=== PATIENT | male | born 1955 | race Caucasian/White ===

== ENCOUNTER → 2022-03-11 | Day surgery (SDC) | payer MEDICARE, BC ==
[~2022-03-11] MED LIST: Flumazenil 0.1 MG/ML 10 ML MDV ONE; Ketamine 200 MG/20 ML MDV ONE; Midazolam 1 MG/ML 2 ML SDV ONE; Propofol 200 MG/20 ML SDV ONE; fentaNYL 50 MCG/ML SDV ONE
[2022-03-11] MEDS: Lactated Ringers 1,000 ML IV SCH (09:40)
[2022-03-11 11:41] VITALS: BP 129/82; PULSE 81
== END ==
LOC: CC.SDS 09:29
PROVIDERS: ATTEND Family Medicine
DX: Z12.11 Encounter for screening for malignant neoplasm of colon (principal); D12.7 Benign neoplasm of rectosigmoid junction; D12.0 Benign neoplasm of cecum; D12.5 Benign neoplasm of sigmoid colon; K57.30 Diverticulosis of large intestine without perforation or abscess without bleeding; I10 Essential (primary) hypertension; E78.5 Hyperlipidemia, unspecified; E83.42 Hypomagnesemia; N40.0 Benign prostatic hyperplasia without lower urinary tract symptoms; E55.9 Vitamin D deficiency, unspecified; D51.0 Vitamin B12 deficiency anemia due to intrinsic factor deficiency; J30.9 Allergic rhinitis, unspecified; M81.8 Other osteoporosis without current pathological fracture; E27.1 Primary adrenocortical insufficiency; Z86.010 Personal history of colon polyps; Z79.899 Other long term (current) drug therapy; Z98.890 Other specified postprocedural states
CPT/HCPCS: 00811; 45385; 88305; J2250; J2704; J3010; J3490; J7120

== ENCOUNTER 2022-10-19 18:18 | Observation (INO) | payer MEDICARE, BC ==
[2022-10-19] MEDS ORDERED: EPINEPHrine 1 MG/ML SDV IM ONE ×2 (18:20→18:26)
[2022-10-19] MEDS ORDERED: diphenhydrAMINE 50 MG/ML SDV IVPUSH ONE (18:20)
[2022-10-19] MEDS ORDERED: methylPREDNISolone Sodium Succinate 125 MG/2 ML SDV IVPUSH ONE (18:21)
[2022-10-19] MEDS ORDERED: Sodium Chloride 0.9% 1,000 ML IV ONE (18:23)
[2022-10-19 18:54] LABS: ALANINE AMINOTRANSFERASE,ALT 60 U/L (12-78); ALBUMIN 3.2 g/dL (3.4-5.0); ALKALINE PHOSPHATASE 84 U/L (46-116); ASPARTATE AMNIOTRANSFERASE,AST 40 U/L (15-37); BILIRUBIN TOTAL 0.8 mg/dL (0.0-1.0); BLOOD UREA NITROGEN,BUN 11 mg/dL (7-18); CALCIUM 8.7 mg/dL (8.4-10.1); CARBON DIOXIDE,CO2 32 mmol/L (21-32); CHLORIDE,CL 96 mEq/L (98-106); GLUCOSE RANDOM 191 mg/dL (75-99); MAGNESIUM 1.8 mg/dL (1.8-2.4); POTASSIUM,K 3.1 mEq/L (3.5-5.0); PROTEIN TOTAL,TP 7.6 g/dL (6.4-8.2); SODIUM,NA 136 mEq/L (136-145)
[2022-10-19 18:59] LABS: ESTIMATED GFR 83 mL/min (>=60)
[2022-10-19] MEDS ORDERED: Potassium Chloride 10 MEQ Tab.ER PO ONE (19:13)
[2022-10-19] MEDS ORDERED: Sodium Chloride 0.45% with KCl 1,000 ML IV SCH (19:37)
[2022-10-19] MEDS ORDERED: Ondansetron 4 MG/2 ML SDV IV PRN (19:37)
[2022-10-19] MEDS ORDERED: EPINEPHrine 1 MG/ML SDV IM PRN (19:37)
[2022-10-19] MEDS ORDERED: Cyanocobalamin (Vitamin B12) 1,000 MCG/ML SDV IM SCH (19:37)
[2022-10-19] MEDS ORDERED: Ondansetron 4 MG Tab.DIS PO PRN (19:37)
[2022-10-19] MEDS ORDERED: ALPRAZolam 0.25 MG Tab PO PRN (19:37)
[2022-10-19] MEDS ORDERED: Acetaminophen 325 MG Tab PO PRN (19:37)
[2022-10-19] MEDS ORDERED: diphenhydrAMINE 50 MG/ML SDV IVPUSH PRN (19:37)
[2022-10-19] MEDS ORDERED: Famotidine 20 MG/2 ML SDV IVPUSH SCH (20:00)
[2022-10-19] MEDS: methylPREDNISolone Sodium Succinate 40 MG/1 ML SDV IVPUSH SCH (23:31)
[2022-10-20] MEDS: methylPREDNISolone Sodium Succinate 40 MG/1 ML SDV IVPUSH SCH (07:39)
[2022-10-20 07:40] LABS: BASOPHILS ABSOLUTE AUTO 0.01 10^3/uL (0.00-0.50); BASOPHILS PERCENT AUTO 0.1 % (0-1); HEMATOCRIT 43.4 % (42.0-52.0); HEMOGLOBIN 15.3 g/dL (14.0-18.0); IMMATURE GRAN ABSOLUTE AUTO 0.05 10^3/uL (0.00-0.49); IMMATURE GRAN PERCENT AUTO 0.6 % (0.0-4.9); LYMPHOCYTES ABSOLUTE AUTO 0.44 10^3/uL (0.60-5.00); LYMPHOCYTES PERCENT AUTO 5.7 % (24-44); MEAN CORPUSCULAR HEMOGLOBIN 36.1 pg (27.0-32.0); MEAN CORPUSCULAR HGB CONC 35.3 g/dL (32.0-36.0); MEAN CORPUSCULAR VOLUME 102.4 fL (83.0-97.0); MONOCYTES ABSOLUTE AUTO 0.21 10^3/uL (0.00-1.50); MONOCYTES PERCENT AUTO 2.7 % (0-10); NEUTROPHILS ABSOLUTE AUTO 7.06 x10^3/uL (1.80-8.00); NEUTROPHILS PERCENT AUTO 90.9 % (41-71); PLATELET COUNT,PLT 168 10^3/uL (150-400); RED BLOOD CELL COUNT 4.24 x10^6/uL (4.50-6.00); WHITE BLOOD CELL COUNT,WBC 7.8 10^3/uL (4.0-11.0)
[2022-10-20 07:48] LABS: CALCIUM 8.6 mg/dL (8.4-10.1); EST CRCL DRUG DOSING (CG) 77.39 mL/min; MAGNESIUM 1.6 mg/dL (1.8-2.4); POTASSIUM,K 3.7 mEq/L (3.5-5.0)
[2022-10-20] MEDS ORDERED: Non-Formulary Medication 1 Each (Ipratropium Bromide [Ipratropium Bromide] 15 ML Spray) NS SCH (08:00)
[2022-10-20] MEDS ORDERED: Torsemide 20 MG Tab PO SCH (08:00)
[2022-10-20] MEDS ORDERED: Multivitamins with Iron/Calcium/Folic Acid/Minerals Tab PO SCH (08:00)
[2022-10-20] MEDS ORDERED: Cholecalciferol (Vitamin D3) 25 MCG Tab PO SCH (08:00)
[2022-10-20] MEDS ORDERED: Potassium Chloride 10 MEQ Tab.ER PO SCH (08:00)
[2022-10-20] MEDS ORDERED: Metoprolol Succinate 25 MG Tab.ER PO SCH (08:00)
[2022-10-20] MEDS ORDERED: Non-Formulary Medication 1 Each (Fish Oil/Omega-3 Fatty Acids [Fish Oil 1,000 Mg] 1 GM Cap PO SCH (08:00)
[2022-10-20 08:43] LABS: BASOPHILS ABSOLUTE AUTO 0.02 10^3/uL (0.00-0.50); BASOPHILS PERCENT AUTO 0.1 % (0-1); EOSINOPHILS ABSOLUTE AUTO 0.09 10^3/uL (0.00-1.50); EOSINOPHILS PERCENT AUTO 0.6 % (0-6); HEMOGLOBIN 16.7 g/dL (14.0-18.0); IMMATURE GRAN ABSOLUTE AUTO 0.13 10^3/uL (0.00-0.49); IMMATURE GRAN PERCENT AUTO 0.9 % (0.0-4.9); LYMPHOCYTES ABSOLUTE AUTO 3.54 10^3/uL (0.60-5.00); LYMPHOCYTES PERCENT AUTO 23.7 % (24-44); MEAN CORPUSCULAR HEMOGLOBIN 35.7 pg (27.0-32.0); MEAN CORPUSCULAR HGB CONC 34.8 g/dL (32.0-36.0); MEAN CORPUSCULAR VOLUME 102.6 fL (83.0-97.0); MONOCYTES ABSOLUTE AUTO 1.54 10^3/uL (0.00-1.50); MONOCYTES PERCENT AUTO 10.3 % (0-10); NEUTROPHILS PERCENT AUTO 64.4 % (41-71); PLATELET COUNT,PLT 224 10^3/uL (150-400); RED BLOOD CELL COUNT 4.68 x10^6/uL (4.50-6.00); WHITE BLOOD CELL COUNT,WBC 14.9 10^3/uL (4.0-11.0)
[2022-10-20 11:12] VITALS: BP 158/90; PULSE 98
== END 2022-10-20 10:50 | disposition home or self-care (01) ==
LOC: CC.ED 18:18 → UNDOADMOB 19:00 → CC.MS 19:00
PROVIDERS: ADMIT Nurse Practitioner; ATTEND Nurse Practitioner
DX: R06.02 Shortness of breath (principal); L50.0 Allergic urticaria; R06.1 Stridor; T63.441A Toxic effect of venom of bees, accidental (unintentional), initial encounter; G89.29 Other chronic pain; M54.2 Cervicalgia; Z79.52 Long term (current) use of systemic steroids; Z79.899 Other long term (current) drug therapy
CPT/HCPCS: 36415; 80048; 80053; 83735; 85025; 93005; 96361; 96372; 96374; 96375; 96376; 99285-25; A9270-GY; G0378; J0171; J1200; J2920; J2930; J3480; J3490; J7030